=== PATIENT | female | born 1970 | race Caucasian/White ===

== ENCOUNTER 2017-09-18 10:08 | Emergency (ER) | payer BC ==
[~2017-09-18] VITALS: Ht 165.1 cm; Wt 89.8 kg
[2017-09-18] MEDS ORDERED: CLINDAMYCIN HC300 MG ORAL (10:40)
--- NOTE | 2017-09-18 10:40 | Emergency Room Report ---
History of Present Illness General Chief Complaint: General Complaint Source: Patient Present Illness HPI 46-year-old female no significant past medical history presenting with left leg rash. Patient states that 2 days ago she felt something bite her left leg, progressively became very red and painful. No cramping. Denies any fever or chills. Also complaining of one day of dysuria, urinary urgency and frequency. Monogamous with one partner no history of STDs no abnormal vaginal discharge Patient states that she is allergic to Keflex and she gets a severe rash Allergies: Coded Allergies: CEPHALEXIN (Verified Allergy, Unknown, 09/18/17) Uncoded Allergies: TAPE (Allergy, Unknown, 09/18/17) Patient History Past Medical History: see triage record Past Surgical History: none Pertinent Family History: none Reviewed Nursing Documentation: PMH: Agreed, PSxH: Agreed Nursing Documentation-PMH Past Medical History: No History, Except For Hx Cardiac Problems: No - HYPOTHYROIDISM Review of Systems All Other Systems: negative except mentioned in HPI Physical Exam Vital Signs Date Time Temp Pulse Resp B/P (MAP) Pulse Ox O2 Delivery O2 Flow Rate FiO2 09/18/17 10:15 98.2 92 20 121/82 99 Room Air Sp02 EP Interpretation: reviewed, normal General Appearance: normal inspection, well appearing, no apparent distress, alert, GCS 15, non-toxic Head: normocephalic, atraumatic Eyes: bilateral eye normal inspection, bilateral eye PERRL, bilateral eye EOMI ENT: normal ENT inspection, normal pharynx, normal voice, moist mucus membranes Neck: normal inspection, full range of motion, supple Respiratory: normal inspection, lungs clear, normal breath sounds, no respiratory distress, no retraction, no wheezing, speaking full sentences, chest symmetrical Cardiovascular #1: normal inspection, regular rate, rhythm, no edema, normal capillary refill Cardiovascular #2: 2+ radial (R), 2+ radial (L) Gastrointestinal: normal inspection, non tender, soft, non-distended, no guarding Musculoskeletal: normal inspection, back normal, normal range of motion, non- tender Neurologic: normal inspection, alert, oriented x3, responsive, motor strength/ tone normal, sensory intact, normal gait, speech normal Psychiatric: normal inspection, judgement/insight normal, memory normal Skin: other - 4 x 4 area of erythema, warmth and left lateral thigh, tender to palpation Medical Decision Making Diagnostic Impression: Primary Impression: Cellulitis ER Course 46-year-old female with redness/swelling to left leg for 2 days. Also with dysuria for one day DDX: Insect bite with cellulitis /rule out UTI No crepitus / pain out of proportion / rapid spreading for concern for nec fasc Plan: UA ER course: Remains nontoxic appearing. There has been no rapid spread of redness/swelling. Disposition: Patient is to be discharged to home on PO antibiotics. Patient is allergic to Keflex, will give clindamycin cellulitis and cipro for UTI Strict precautions discussed with patients on when to return to the ED including fevers, chills, rapid spread of rash, persistent rash, extreme pain to extremity, which may indicate severe illness. Patient verbalizes understanding. Patient is instructed to follow up with primary care doctor OR come back to the ED in 48 hours for wound check. Patient agrees with plan. Please note that this Emergency Department Report was dictated using [employer] team member technology software, occasionally this can lead to erroneous entry secondary to interpretation by the dictation equipment. Laboratory Tests Test 09/18/17 10:35 Urine Color Yellow Urine Appearance Slightly cloudy Urine pH 8 (4.5-8.0) Urine Specific [place] 1.010 (1.005-1.035) Urine Protein 2+ (NEGATIVE) H Urine Glucose (UA) Negative (NEGATIVE) Urine Ketones 1+ (NEGATIVE) H Urine Occult Blood 5+ (NEGATIVE) H Urine Nitrite Negative (NEGATIVE) Urine Bilirubin Negative (NEGATIVE) Urine Urobilinogen 1 MG/DL (0.0-1.0) H Urine Leukocyte Esterase 3+ (NEGATIVE) H Urine RBC Tntc /HPF (0 - 2) H Urine WBC 5-10 /HPF (0 - 2) H Urine Squamous Epithelial Cells Few /LPF (NONE/OCC) Urine Bacteria Few /HPF (NONE) Last Vital Signs Date Time Temp Pulse Resp B/P (MAP) Pulse Ox O2 Delivery O2 Flow Rate FiO2 09/18/17 10:15 98.2 92 20 121/82 99 Room Air Disposition: HOME, SELF-CARE Condition: Stable Scripts Clindamycin Hcl (CLINDAMYCIN HCL) 300 Mg Capsule 300 MG ORAL THREE TIMES A DAY for 7 Days, #21 CAP 0 Refills Prov: Allie Hughes M.D. 09/18/17 Referrals: NON PHYSICIAN (PCP) Allie Hughes M.D. Sep 18, 2017 10:40
[2017-09-18] MEDS ORDERED: thyroid ORAL (10:48)
[2017-09-18] MEDS ORDERED: TRICOR48 MG ORAL (10:48)
[2017-09-18 10:58] LABS: APPEARANCE,URINE SLIGHTLY CLOUDY; KETONES,URINE 1+ (NEGATIVE); LEUKOCYTE ESTERASE ,URINE 3+ (NEGATIVE); NITRITE,URINE NEGATIVE (NEGATIVE); PH,URINE 8 (4.5-8.0); PROTEIN,URINE 2+ (NEGATIVE); UROBILINOGEN,URINE 1 MG/DL (0.0-1.0)
[2017-09-18 11:12] LABS: BACTERIA,URINE FEW /HPF; RBC,URINE TNTC /HPF (0 - 2); SQUAMOUS EPITHELIAL CELL,UR FEW /LPF (NONE/OCC)
[2017-09-18 11:26] VITALS: BP 124/74
== END 2017-09-18 11:26 | disposition home or self-care (01) ==
LOC: EMR 10:17
DX: L03.116 Cellulitis of left lower limb (principal); E03.9 Hypothyroidism, unspecified; Z88.1 Allergy status to other antibiotic agents; Z91.048 Other nonmedicinal substance allergy status
CPT/HCPCS: 81003; 99283